=== PATIENT | male | born 1985 | race Asian ===

== ENCOUNTER 2023-09-05 22:54 | Emergency (ER) | payer OTHER ==
[~2023-09-05] VITALS: Ht 165.1 cm; Wt 82.7 kg
[2023-09-06 01:03] VITALS: BP 130/72; PULSE 88; RESP 16; TEMP 98.1
[2023-09-06] MEDS: CLINDAMYCIN HCL 150 MG CAPSULE PO ONE (01:24)
[2023-09-06] MEDS: POLYMYXIN B/TRIMETHOPRIM 10 ML OPHTHALMIC SOLUTION OS ONE (01:24)
[2023-09-06] MEDS ORDERED: CLIN-26 PO (01:25)
[2023-09-06] MEDS ORDERED: POLYOS OS (01:25)
== END 2023-09-06 01:37 | disposition home or self-care (01) ==
LOC: EMS 22:56
DX: H57.12 Ocular pain, left eye (principal)
CPT/HCPCS: 99283